=== PATIENT | male | born 2000 | race African-American/Black ===

== ENCOUNTER 2022-07-12 23:53 | Inpatient (IN) | payer OTHER ==
[~2022-07-12] VITALS: Ht 180.3 cm; Wt 93.4 kg
[2022-07-13] MEDS ORDERED: HOME MED LIST COMPLETE! XX SCH (00:45)
[2022-07-13 01:02] LABS: HEMOGLOBIN 16.1 g/dl (13.5-17.5); MEAN CORPUSCULAR HEMOGLOBIN 33.1 pg (27.0-33.0); MEAN CORPUSCULAR HGB CONC 33.5 g/dl (32.0-36.5); MEAN CORPUSCULAR VOLUME 98.6 fl (80.0-96.0); PLATELET COUNT, AUTOMATED 331 10^3/uL (150-450); RED BLOOD COUNT 4.87 10^6/uL (4.30-6.10); WHITE BLOOD COUNT 6.9 10^3/uL (4.0-10.0)
[2022-07-13 01:14] LABS: AMPHETAMINES LEVEL URINE NEGATIVE (NEGATIVE); BARBITURATES URINE NEGATIVE (NEGATIVE); BENZODIAZEPINES URINE NEGATIVE (NEGATIVE); CANNABINOIDS URINE NEGATIVE (NEGATIVE); COCAINE METABOLITE URINE NEGATIVE (NEGATIVE); METHADONE URINE NEGATIVE (NEGATIVE); OPIATES URINE NEGATIVE (NEGATIVE); PHENCYCLIDINE URINE NEGATIVE (NEGATIVE)
[2022-07-13 01:17] LABS: ACETAMINOPHEN LEVEL < 2.0 UG/ML (10.0-20.0); ALBUMIN 4.5 G/DL (3.2-5.2); ALKALINE PHOSPHATASE 87 U/L (46-116); ALT/SGPT 123 U/L (7.0-40); AST/SGOT 75 U/L (<34); BILIRUBIN,DIRECT 0.1 MG/DL (<0.4); BILIRUBIN,TOTAL 0.3 MG/DL (0.3-1.2); BLOOD UREA NITROGEN 13 MG/DL (9-23); CALCIUM LEVEL 9.4 MG/DL (8.5-10.1); CARBON DIOXIDE LEVEL 26 MMOL/L (20-31); CHLORIDE LEVEL 103 MMOL/L (98-107); CREATININE FOR GFR 0.97 MG/DL (0.70-1.30); GLOMERULAR FILTRATION RATE > 60.0 (>60); GLUCOSE, FASTING 112 MG/DL (60-100); SALICYLATE LEVEL < 3.0 MG/DL (<30); SODIUM LEVEL 140 MMOL/L (136-145); TOTAL PROTEIN 8.1 G/DL (5.7-8.2)
[2022-07-13 01:19] LABS: THYROID STIMULATING HORMONE 2.301 uIU/ML (0.55-4.78)
[2022-07-13 01:40] LABS: ETHYL ALCOHOL (ETHANOL) 0.313 % (0.000-0.010)
[2022-07-13] MEDS ORDERED: NICOTINE 21MG/24HR 1 EA TRANSDERMAL TD SCH (09:00)
[2022-07-13] MEDS ORDERED: MOM 30ML SUSPENSION UDC PO PRN (11:35)
[2022-07-13] MEDS ORDERED: diphenhydrAMINE 25MG CAP PO PRN (11:35)
[2022-07-13] MEDS ORDERED: ACETAMINOPHEN TAB 650MG DOSE (2X325MG) PO PRN (11:35)
[2022-07-13] MEDS ORDERED: LORazepam 2 MG TAB PO PRN (11:35)
[2022-07-13] MEDS ORDERED: IBUPROFEN 400MG TAB PO PRN (11:35)
[2022-07-13] MEDS ORDERED: MAALOX 30 ML SUSP *UDC PO PRN (11:35)
[2022-07-13 12:55] VITALS: BP 148/87
[2022-07-13] MEDS: THIAMINE 100 MG TAB PO SCH ×2 (13:26→20:28)
[2022-07-13] MEDS: FOLIC ACID 1MG TAB PO SCH (13:26)
[2022-07-13] MEDS: MULTIVITAMINS/MINERALS THERAP 1 TAB PO SCH (13:26)
[2022-07-13] MEDS: NICOTINE POLACRILEX 2 MG GUM PO PRN (15:45)
[2022-07-13 16:16] VITALS: BP 136/78
[2022-07-13] MEDS: traZODone 50 MG TAB PO PRN (20:28)
[2022-07-14 06:00] VITALS: BP 141/76
[2022-07-14 06:40] VITALS: BP 141/76
[2022-07-14] MEDS: MULTIVITAMINS/MINERALS THERAP 1 TAB PO SCH (07:54)
[2022-07-14] MEDS: FOLIC ACID 1MG TAB PO SCH (07:54)
[2022-07-14] MEDS: NICOTINE POLACRILEX 2 MG GUM PO PRN ×3 (07:54→20:13)
[2022-07-14] MEDS: THIAMINE 100 MG TAB PO SCH ×2 (07:54→20:12)
[2022-07-14] MEDS: FLUoxetine 20MG CAP PO SCH (10:12)
[2022-07-14 15:41] VITALS: BP 143/77
[2022-07-14 15:56] LABS: ALBUMIN 4.2 G/DL (3.2-5.2); BILIRUBIN,DIRECT 0.3 MG/DL (<0.4); TOTAL PROTEIN 7.5 G/DL (5.7-8.2)
[2022-07-14 16:06] VITALS: BP 143/77
[2022-07-14] MEDS: traZODone 50 MG TAB PO PRN (22:25)
[2022-07-14 23:39] VITALS: BP 148/89
[2022-07-15 06:40] VITALS: BP 127/90
[2022-07-15] MEDS: FLUoxetine 20MG CAP PO SCH (07:55)
[2022-07-15] MEDS: NICOTINE POLACRILEX 2 MG GUM PO PRN (07:56)
[2022-07-15] MEDS: FOLIC ACID 1MG TAB PO SCH (07:56)
[2022-07-15] MEDS: MULTIVITAMINS/MINERALS THERAP 1 TAB PO SCH (07:56)
[2022-07-15] MEDS: THIAMINE 100 MG TAB PO SCH ×2 (07:56→20:46)
[2022-07-15 08:27] VITALS: BP 127/90
[2022-07-15 16:22] VITALS: BP 146/85
[2022-07-15 16:32] VITALS: BP 146/85
[2022-07-15] MEDS: traZODone 50 MG TAB PO PRN (20:46)
[2022-07-16 05:51] VITALS: BP 139/91
[2022-07-16 07:21] LABS: BILIRUBIN,DIRECT 0.3 MG/DL (<0.4); TOTAL PROTEIN 6.8 G/DL (5.7-8.2)
[2022-07-16] MEDS ORDERED: NICO2GUM PO (08:40)
[2022-07-16] MEDS ORDERED: FLUO20CA22 PO (08:40)
[2022-07-16] MEDS ORDERED: TRAZ-252 PO (08:41)
[2022-07-16] MEDS: FOLIC ACID 1MG TAB PO SCH (08:54)
[2022-07-16] MEDS: FLUoxetine 20MG CAP PO SCH (08:54)
[2022-07-16] MEDS: MULTIVITAMINS/MINERALS THERAP 1 TAB PO SCH (08:54)
[2022-07-16] MEDS: NICOTINE POLACRILEX 2 MG GUM PO PRN (08:55)
== END 2022-07-16 11:27 | disposition home or self-care (01) | DRG 885 ==
LOC: M ED 23:53 → M ED INP 07-13 11:31 → M PSY 07-13 12:49
PROVIDERS: ADMIT Student in an Organized Health Care Education/Training Program; ATTEND Student in an Organized Health Care Education/Training Program
DX: F32.89 Other specified depressive episodes (principal); R45.851 Suicidal ideations; F10.10 Alcohol abuse, uncomplicated; Z88.0 Allergy status to penicillin; F17.290 Nicotine dependence, other tobacco product, uncomplicated